=== PATIENT | female | born 1965 | race Caucasian/White ===

== ENCOUNTER 2017-05-27 15:29 | Emergency (ER) | payer OTHER ==
[2017-05-27] MEDS: ACETAMINOPHEN 325 MG TAB PO (17:46)
[2017-05-27 21:59] LABS: URINE BLOOD (Dip) POC Negative (NEGATIVE); URINE GLUCOSE (Dip) POC Negative (NEGATIVE); URINE KETONES (Dip) POC Negative (NEGATIVE); URINE LEUKOCYTE EST (Dip) POC Trace (NEGATIVE); URINE NITRITE (Dip) POC Negative (NEGATIVE); URINE TOTAL PROTEIN POC Negative (NEGATIVE)
[2017-05-27 21:59] LABS: URINE PH (Dip) POC 5.5 (5.0-8.5)
== END 2017-05-27 22:05 | disposition home or self-care (01) ==
LOC: FTE 15:29
DX: S09.90XA Unspecified injury of head, initial encounter (principal); R42 Dizziness and giddiness; W01.0XXA Fall on same level from slipping, tripping and stumbling without subsequent striking against object, initial encounter; Y92.512 Supermarket, store or market as the place of occurrence of the external cause
CPT/HCPCS: 70450; 72125; 81003; 81025; 99285-25